=== PATIENT | male | born 1965 | race African-American/Black ===

== ENCOUNTER 2019-03-24 23:56 | Emergency (ER) | payer SELFPAY ==
[~2019-03-24] VITALS: Ht 188 cm; Wt 111.3 kg
[2019-03-25 00:10] VITALS: Ht 188 cm; Wt 111.3 kg
--- NOTE | 2019-03-25 09:00 | ERD ---
ER Documentation Chief Complaint Chief Complaint states somebody is following him. denies dto/dts HPI This is a 53-year-old male with a history of depression and schizophrenia. The patient indicates that he has not taken his antipsychotic medication for several days because he ran out of his medications. He does not know what medications he takes. The patient does indicate that yesterday he utilized cocaine and denied any other illicit drug use. Afterwards he stated he felt as though people are following him. He stated he started to see many faces with eyes popping out of their heads and felt as though he wanted to . He presents to the emergency department today as he states he wants to talk to somebody as the voices are telling him to kill himself. He denies headache. He denies any shortness of breath. He denies any abdominal pain. He denies any alcohol use. ROS All systems reviewed and are negative except as per history of present illness. Allergies Allergies: Coded Allergies: Penicillins (Verified Allergy, Unknown, 03/25/19) PMhx/Soc Medical and Surgical Hx: pt denies Surgical Hx Hx Psychiatric Problems: Yes (SCHIZO AFFECTIVE DISORDER) Hx Miscellaneous Medical Probl: No Hx Substance Use: Yes Hx Tobacco Use: No Smoking Status: Never smoker Physical Exam Vitals Vital Signs Date Temp Pulse Resp B/P (MAP) Pulse Ox O2 O2 Flow FiO2 Time Delivery Rate 03/25/19 97.0 112 20 152/77 97 00:10 (102) Physical Exam Constitutional:Well-developed. Well-nourished. HEENT:Normocephalic. Atraumatic.Pupils were equal round reactive to light. Moist mucous membranes.No tonsillar exudates. Respiratory: Not using accessory muscles of respiration.Lungs were clear to auscultation bilaterally. No rhonchi. No rales. No wheezing. Cardiovascular: Regular rate regular rhythm.No murmurs. No rubs were appreciated.S1, S2 normal. Distal pulses are palpable 2+ bilaterally. GI: Abdomen was soft. Nontender. Non Distended. No pulsatile abdominal masses or bruits. No rebound. No guarding. Bowel sounds were present and normal. NEURO: Patient was alert, awake, orientated x3.No facial droop. Gait observed and normal with no ataxia.Speech had regular rate and rhythm. No focal neurological deficits. PSYCH: The patient was experiencing visual hallucinations as well as auditory hallucinations. Patient suicidal thoughts and ideations. He states he does not have a plan as to how he wants to kill himself. Result Diagram: 03/25/1960203/25/19 0603 Results 24 hrs Laboratory Tests Test 03/25/19 06:03 White Blood Count 9.6 10^3/ul Red Blood Count 4.78 10^6/ul Hemoglobin 13.8 g/dl Hematocrit 43.0 % Mean Corpuscular Volume 90.0 fl Mean Corpuscular Hemoglobin 28.9 pg Mean Corpuscular Hemoglobin Concent 32.1 g/dl Red Cell Distribution Width 14.4 % Platelet Count 245 10^3/UL Mean Platelet Volume 10.1 fl Immature Granulocytes % 0.300 % Neutrophils % 67.1 % Lymphocytes % 21.6 % Monocytes % 9.2 % Eosinophils % 1.4 % Basophils % 0.4 % Nucleated Red Blood Cells % 0.0 /100WBC Immature Granulocytes # 0.030 10^3/ul Neutrophils # 6.4 10^3/ul Lymphocytes # 2.1 10^3/ul Monocytes # 0.9 10^3/ul Eosinophils # 0.1 10^3/ul Basophils # 0.0 10^3/ul Nucleated Red Blood Cells # 0.0 10^3/ul Prothrombin Time 14.4 Sec Prothrombin Time Ratio 1.1 INR International Normalized Ratio 1.11 Activated Partial Thromboplast Time 26.5 Sec Urine Color YELLOW Urine Clarity CLEAR Urine pH 6.0 Urine Specific [place] 1.028 Urine Ketones 1+ mg/dL Urine Nitrite NEGATIVE mg/dL Urine Bilirubin NEGATIVE mg/dL Urine Urobilinogen NEGATIVE mg/dL Urine Leukocyte Esterase NEGATIVE Eliel/ul Urine Microscopic RBC 11 /HPF Urine Microscopic WBC 3 /HPF Urine Mucus FEW /HPF Urine Hemoglobin 2+ mg/dL Urine Glucose NEGATIVE mg/dL Urine Total Protein 1+ mg/dl Sodium Level 142 mmol/L Potassium Level 3.6 mmol/L Chloride Level 103 mmol/L Carbon Dioxide Level 25 mmol/L Anion Gap 14 Blood Urea Nitrogen 33 mg/dl Creatinine 1.36 mg/dl Est Glomerular Filtrat Rate mL/min 54 mL/min Glucose Level 127 mg/dl Calcium Level 9.7 mg/dl Total Bilirubin 0.8 mg/dl Direct Bilirubin 0.00 mg/dl Indirect Bilirubin 0.8 mg/dl Aspartate Amino Transf (AST/SGOT) 189 IU/L Alanine Aminotransferase (ALT/SGPT) 83 IU/L Alkaline Phosphatase 92 IU/L Total Protein 9.1 g/dl Albumin 4.7 g/dl Globulin 4.40 g/dl Albumin/Globulin Ratio 1.06 Salicylates Level < 1.0 mg/dl Urine Opiates Screen Negative Acetaminophen Level < 10.0 ug/ml Urine Barbiturates Negative Urine Amphetamines Screen Positive Urine Benzodiazepines Screen Negative Urine Cocaine Screen Positive Urine Cannabinoids Negative Ethyl Alcohol Level < 10.0 mg/dl Procedures/MDM This patient presented to the emergency department with acute psychosis and my differential diagnosis included but was not limited to ruling out life threatening causes of acute psychosis such as Wernickes encephalopathy, hypoxia, hypoglycemia, hypertensive encephalopathy, intracerebral hemorrhage, meningitis, poisoning. After my evaluation and workup on the patient I was able to exclude medical and reversible causes of the patients psychosis. It was my clinical impression the p atients symptoms were an exacerbation of his psychiatric disorder; therefore, the patient was medically cleared by myself at this time for psychiatric evaluation and possible transfer. The patient stricturing was positive however for amphetamines and cocaine. Departure Diagnosis: Primary Impression: Hallucinations Additional Impressions: Cocaine abuse Amphetamine abuse Condition: DANIEL Benitez MD Mar 25, 2019 09:00
--- NOTE | 2019-03-25 09:59 | PSY ---
Date/Time of Note Date/Time of Note DATE: 03/25/19 TIME: 09:52 Psychiatric Subjective Eval Subjective Evaluation Patient location: emergency Chief Complaint: states somebody is following him. 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 Denies HI. Past psychiatric history multiple inpt; non compliance Hospitalization: yes Medical history Problems Medical Problems: (1) Amphetamine abuse Status: Acute (2) Cocaine abuse Status: Acute (3) Hallucinations Status: Acute Allergies: Coded Allergies: Penicillins (Verified Allergy, Unknown, 03/25/19) Substance Abuse Substance abuse history: Yes Prior substance abuse treatmen: Yes Social History Marital status: DPA/Conservatorship: No Occupation/Residential: homeless Psychiatric Objective Eval Review of Systems: Review of Systems: Not Applicable Physical Examination: Sleep: Insomnia Appetite: Decreased Energy: Decreased Interest: Decreased Mental Status Examination: Appearance: Disheveled Eye Contact: Good Psychomotor Activity: Normal Behavior: Cooperative Speech: Clear AFFECT: Depressed Mood: Depressed Though Process: Linear Thought Content: Hallucinations Suicidal: Yes Homicidal: No On 72 hour hold: No Orientation: x4 Cognition: Alert Insight: Impared Judgement: Impared Laboratory Results Laboratory Tests Test 03/25/19 06:03 White Blood Count 9.6 10^3/ul Red Blood Count 4.78 10^6/ul Hemoglobin 13.8 g/dl Hematocrit 43.0 % Mean Corpuscular Volume 90.0 fl Mean Corpuscular Hemoglobin 28.9 pg Mean Corpuscular Hemoglobin Concent 32.1 g/dl Red Cell Distribution Width 14.4 % Platelet Count 245 10^3/UL Mean Platelet Volume 10.1 fl Immature Granulocytes % 0.300 % Neutrophils % 67.1 % Lymphocytes % 21.6 % Monocytes % 9.2 % Eosinophils % 1.4 % Basophils % 0.4 % Nucleated Red Blood Cells % 0.0 /100WBC Immature Granulocytes # 0.030 10^3/ul Neutrophils # 6.4 10^3/ul Lymphocytes # 2.1 10^3/ul Monocytes # 0.9 10^3/ul Eosinophils # 0.1 10^3/ul Basophils # 0.0 10^3/ul Nucleated Red Blood Cells # 0.0 10^3/ul Prothrombin Time 14.4 Sec Prothrombin Time Ratio 1.1 INR International Normalized Ratio 1.11 Activated Partial Thromboplast Time 26.5 Sec Urine Color YELLOW Urine Clarity CLEAR Urine pH 6.0 Urine Specific [place] 1.028 Urine Ketones 1+ mg/dL Urine Nitrite NEGATIVE mg/dL Urine Bilirubin NEGATIVE mg/dL Urine Urobilinogen NEGATIVE mg/dL Urine Leukocyte Esterase NEGATIVE Eliel/ul Urine Microscopic RBC 11 /HPF Urine Microscopic WBC 3 /HPF Urine Mucus FEW /HPF Urine Hemoglobin 2+ mg/dL Urine Glucose NEGATIVE mg/dL Urine Total Protein 1+ mg/dl Sodium Level 142 mmol/L Potassium Level 3.6 mmol/L Chloride Level 103 mmol/L Carbon Dioxide Level 25 mmol/L Anion Gap 14 Blood Urea Nitrogen 33 mg/dl Creatinine 1.36 mg/dl Est Glomerular Filtrat Rate mL/min 54 mL/min Glucose Level 127 mg/dl Calcium Level 9.7 mg/dl Total Bilirubin 0.8 mg/dl Direct Bilirubin 0.00 mg/dl Indirect Bilirubin 0.8 mg/dl Aspartate Amino Transf (AST/SGOT) 189 IU/L Alanine Aminotransferase (ALT/SGPT) 83 IU/L Alkaline Phosphatase 92 IU/L Total Protein 9.1 g/dl Albumin 4.7 g/dl Globulin 4.40 g/dl Albumin/Globulin Ratio 1.06 Salicylates Level < 1.0 mg/dl Urine Opiates Screen Negative Acetaminophen Level < 10.0 ug/ml Urine Barbiturates Negative Urine Amphetamines Screen Positive Urine Benzodiazepines Screen Negative Urine Cocaine Screen Positive Urine Cannabinoids Negative Ethyl Alcohol Level < 10.0 mg/dl Assessment and Plan Assessment/Diagnosis Diagnosis Stimulants use disorder with depressed mood and psychosis Recommendation/Plan Medication Management Zyprexa 5 mg Po BId Discharge Disposition: Psychiatric inpatient Legal Status: Voluntary ELSIE VELIZ MD Mar 25, 2019 09:59
[2019-03-25 19:07] VITALS: BP 146/65; PULSE 87; RESP 18
== END 2019-03-25 19:08 ==
LOC: E/R 23:56
DX: F15.151 Other stimulant abuse with stimulant-induced psychotic disorder with hallucinations (principal); F14.151 Cocaine abuse with cocaine-induced psychotic disorder with hallucinations; R40.2142 Coma scale, eyes open, spontaneous, at arrival to emergency department; R40.2362 Coma scale, best motor response, obeys commands, at arrival to emergency department; R40.2252 Coma scale, best verbal response, oriented, at arrival to emergency department
CPT/HCPCS: 80053; 80307; 81001; 85025; 85610; 85730